=== PATIENT | female | born 1940 | race Caucasian/White ===

== ENCOUNTER 2017-12-23 10:20 | Inpatient (IN) ==
[2017-12-23] MEDS ORDERED: PANTOPRAZOLE 40 MG VIAL IV STA (10:49)
[2017-12-23] MEDS ORDERED: ONDANSETRON 4 MG/2 ML VIAL IV STA (10:49)
[2017-12-23] MEDS ORDERED: FUROSEMIDE 100 MG/10 ML VIAL IV STA (10:49)
[2017-12-23] MEDS ORDERED: methylPREDNISolone SOD SUC 125 MG/2 ML VIAL IV STA (10:49)
[2017-12-23] MEDS ORDERED: ALBUTEROL 2.5 MG/3 ML NEB RESP TX SCH (11:00)
[2017-12-23 11:01] LABS: Basophils % 0.5 % (0.0-0.8); Eosinophils # 0.1 10*3/uL (0.0-0.87); Eosinophils % 1.7 % (0.00-10.9); Hematocrit 31.7 VOL% (35.7-47.0); Hemoglobin 9.5 GM/DL (12.0-16.0); Immature Granulocytes % 0.8 %; Immature Granulocytes Absolute 0.06 #; Lymphocytes # 2.3 10*3/uL (1.4-4.0); Lymphocytes % 29.6 % (21.3-54.2); Mean Corpuscular Hemoglobin 24 PG (27-34); Mean Corpuscular Volume 80.1 FL (87-102); Mean Platelet Volume 10.8 FL (9.6-12.0); Monocytes # 0.8 10*3/uL (0.11-0.8); Monocytes % 9.8 % (1.7-12.7); Neutrophils # 4.4 10*3/uL (1.4-7.4); Neutrophils % 57.6 % (38.7-73.9); Platelet Count 290 T/CUMM (130-400); Red Blood Count 3.96 MC/CUMM (3.8-5.5); Red Cell Distribution Width 17.2 % (9.3-17.3); White Blood Count 7.7 T/CUMM (4-12)
[2017-12-23 11:12] LABS: Apearance,Urine CLEAR (Clear); Bilirubin,Urine Negative (Negative); Blood, Urine Negative (Negative); Glucose,Urine (UA) Negative (Negative); Ketones,Urine Negative (Negative); Mucus,Urine Occasional /LPF (Occasional); Nitrite,Urine Negative (Negative); Protein,Urine Negative; Urine Color Yellow (Yellow); Urine Specific Gravity 1.011 (1.001-1.035); Urine Urobilinogen < 2.0 EU/DL (0.2-1.0); WBC,Urine 1 /HPF (0-6)
[2017-12-23 11:19] LABS: INR 2.6
[2017-12-23 11:26] LABS: Alanine Aminotransferase 23 U/L (13-56); Albumin 3.1 G/DL (3.4-5.0); Alkaline Phosphatase 65 U/L (45-117); Aspartate Amino Transferase 32 U/L (0-37); Bilirubin,Total < 0.39 MG/DL (0.2-1.0); Blood Urea Nitrogen 12 MG/DL (7-18); Calcium 8.8 MG/DL (8.5-10.1); Glucose 114 MG/DL (74-106); Osmolality,Calculated 283.1 MOS/KG (273-304); Potassium 3.8 MMOL/L (3.5-5.1); Sodium 142 MMOL/L (136-145); Total Protein 7.2 G/DL (6.4-8.3); Troponin I Only < 0.015 NG/ML (0.00-0.045)
[2017-12-23 11:32] LABS: Eosinophils 2 % (0-10); Hypochromasia 1+; Lymphocytes 26 % (20-55); Microcytosis 1+; Ovalocytes Few; Segmented Neutrophils 65 % (50-85); Total Cells Counted 100
[2017-12-23 11:33] LABS: Atypical Lymphocytes Few; Giant Platelets Few; Platelet Estimate Normal
[2017-12-23] MEDS ORDERED: cefTRIAXone 1,000 MG in SODIUM CHLORIDE 0.9% 100 ML IV STA (11:43)
[2017-12-23] MEDS ORDERED: DEXTROSE 50% 25 GM/50 ML VIAL IV PRN (14:25)
[2017-12-23] MEDS ORDERED: ALBUTEROL/IPRATROPIUM 3 ML NEB RESP TX PRN (14:25)
[2017-12-23] MEDS ORDERED: GLUCAGON 1 MG VIAL IM PRN (14:25)
[2017-12-23] MEDS: cefTRIAXone 1,000 MG in SYRINGE 1 EACH IV SCH (15:27)
[2017-12-23] MEDS: FUROSEMIDE 20 MG/2 ML VIAL IV SCH (15:27)
[2017-12-23] MEDS: SODIUM CHLORIDE 0.9% 1,000 ML IV SCH (15:28)
[2017-12-23] MEDS: INSULIN REGULAR 100 UNIT/ML SUBCUT SCH ×2 (15:35→21:07)
[2017-12-23] MEDS: DICYCLOMINE 10 MG CAPSULE PO SCH ×2 (17:06→21:05)
[2017-12-23] MEDS: methylPREDNISolone SOD SUC 40 MG/1 ML VIAL IV SCH (17:06)
[2017-12-23] MEDS: LEVOFLOXACIN INJ 500 MG in PREMIX 1 EACH IV SCH (17:07)
[2017-12-23] MEDS ORDERED: LEVOTHYROXINE 100 MCG TABLET PO SCH (21:00)
[2017-12-23] MEDS ORDERED: SIMVASTATIN 40 MG TABLET PO SCH (21:00)
[2017-12-23] MEDS: POTASSIUM CHLORIDE 10 MEQ TABLET PO SCH (21:06)
[2017-12-23] MEDS: MAGNESIUM CHLORIDE 64 MG TABLET PO SCH (21:06)
[2017-12-23] MEDS: DOCUSATE SODIUM 100 MG CAPSULE PO SCH (21:07)
[2017-12-23] MEDS: ONDANSETRON 4 MG/2 ML VIAL IV PRN (21:13)
[2017-12-24] MEDS: ONDANSETRON 4 MG/2 ML VIAL IV PRN (04:44)
[2017-12-24] MEDS: methylPREDNISolone SOD SUC 40 MG/1 ML VIAL IV SCH ×2 (04:44→17:57)
[2017-12-24 06:52] LABS: Hematocrit 31.6 VOL% (35.7-47.0); Immature Granulocytes % 1.3 %; Lymphocytes # 1.1 10*3/uL (1.4-4.0); Lymphocytes % 13.9 % (21.3-54.2); Mean Corpuscular HGB Conc 31.6 GM/DL (32-36); Mean Corpuscular Hemoglobin 24 PG (27-34); Mean Corpuscular Volume 76.5 FL (87-102); Mean Platelet Volume 10.4 FL (9.6-12.0); Monocytes # 0.6 10*3/uL (0.11-0.8); Monocytes % 7.8 % (1.7-12.7); NRBC # 0.02 10*3/uL; Platelet Count 320 T/CUMM (130-400); Red Blood Count 4.13 MC/CUMM (3.8-5.5); Red Cell Distribution Width 17.2 % (9.3-17.3); White Blood Count 7.8 T/CUMM (4-12)
[2017-12-24 07:33] LABS: Albumin 3.3 G/DL (3.4-5.0); Bilirubin,Total 0.7 MG/DL (0.2-1.0); Calcium 8.8 MG/DL (8.5-10.1); Osmolality,Calculated 289.8 MOS/KG (273-304); Potassium 4.2 MMOL/L (3.5-5.1); Risk Ratio 3.2; Total Protein 7.1 G/DL (6.4-8.3)
[2017-12-24 07:38] LABS: T4 (Thyroxine) 11.2 UG/DL (4.7-13.3); Thyroid Stimulating Hormone 1.07 uIU/ml (0.358-3.74)
[2017-12-24] MEDS ORDERED: amLODIPine 5 MG TABLET PO SCH (09:00)
[2017-12-24] MEDS ORDERED: SIMVASTATIN 40 MG TABLET PO SCH ×3 (09:00→16:00)
[2017-12-24] MEDS ORDERED: MAGNESIUM CHLORIDE 64 MG TABLET PO SCH ×3 (09:02→21:00)
[2017-12-24] MEDS: FUROSEMIDE 20 MG/2 ML VIAL IV SCH (09:37)
[2017-12-24] MEDS: SODIUM CHLORIDE 0.9% 1,000 ML IV SCH ×2 (10:55→14:42)
[2017-12-24] MEDS: INSULIN REGULAR 100 UNIT/ML SUBCUT SCH (10:56)
[2017-12-24] MEDS: DICYCLOMINE 10 MG CAPSULE PO SCH ×5 (11:26→20:22)
[2017-12-24] MEDS: ATENOLOL 25 MG TABLET PO SCH ×2 (11:26→12:03)
[2017-12-24] MEDS: PANTOPRAZOLE 40 MG TABLET PO SCH (12:03)
[2017-12-24] MEDS: MAGNESIUM CHLORIDE 64 MG TABLET PO SCH ×2 (12:15→17:05)
[2017-12-24] MEDS: DOCUSATE SODIUM 100 MG CAPSULE PO SCH (12:15)
[2017-12-24] MEDS: POTASSIUM CHLORIDE 10 MEQ TABLET PO SCH ×2 (12:15→17:06)
[2017-12-24] MEDS: cefTRIAXone 1,000 MG in SYRINGE 1 EACH IV SCH (14:41)
[2017-12-24] MEDS ORDERED: LEVOTHYROXINE 100 MCG TABLET PO SCH (16:00)
[2017-12-24] MEDS: BENZONATATE 100 MG CAPSULE PO PRN (17:56)
[2017-12-24] MEDS: LEVOTHYROXINE 100 MCG TABLET PO SCH (17:57)
[2017-12-24] MEDS: amLODIPine 5 MG TABLET PO SCH (17:58)
[2017-12-24] MEDS: SIMVASTATIN 40 MG TABLET PO SCH (17:58)
[2017-12-24] MEDS: LEVOFLOXACIN INJ 500 MG in PREMIX 1 EACH IV SCH (17:58)
[2017-12-24] MEDS ORDERED: POTASSIUM CHLORIDE 10 MEQ TABLET PO SCH (18:00)
[2017-12-24 19:05] LABS: Apearance,Urine Slightly Hazy (Clear); Bilirubin,Urine Negative (Negative); Blood, Urine Large mg/dL (Negative); Glucose,Urine (UA) Negative (Negative); Ketones,Urine Negative (Negative); Mucus,Urine Moderate /LPF (Occasional); Nitrite,Urine Negative (Negative); Protein,Urine 100 MG/DL; RBC,Urine 417 /HPF (0-4); Urine Color Yellow (Yellow); Urine Specific Gravity 1.017 (1.001-1.035); Urine Urobilinogen < 2.0 EU/DL (0.2-1.0); WBC,Urine 11 /HPF (0-6)
[2017-12-24 19:29] LABS: INR 2.4
[2017-12-24 19:33] LABS: PT Patient Result 24.6 SECS
[2017-12-25] MEDS: BENZONATATE 100 MG CAPSULE PO PRN ×3 (03:34→19:56)
[2017-12-25] MEDS: methylPREDNISolone SOD SUC 40 MG/1 ML VIAL IV SCH ×2 (05:25→16:32)
[2017-12-25] MEDS: SODIUM CHLORIDE 0.9% 1,000 ML IV SCH ×2 (05:36→12:46)
[2017-12-25 06:42] LABS: Basophils % 0.2 % (0.0-0.8); Eosinophils % 0.2 % (0.00-10.9); Hematocrit 32.5 VOL% (35.7-47.0); Immature Granulocytes % 0.5 %; Immature Granulocytes Absolute 0.05 #; Lymphocytes # 2.7 10*3/uL (1.4-4.0); Lymphocytes % 26.5 % (21.3-54.2); Mean Corpuscular HGB Conc 30.8 GM/DL (32-36); Mean Corpuscular Hemoglobin 24 PG (27-34); Mean Corpuscular Volume 78.3 FL (87-102); Mean Platelet Volume 11.1 FL (9.6-12.0); Monocytes # 1.1 10*3/uL (0.11-0.8); Monocytes % 10.9 % (1.7-12.7); Neutrophils # 6.2 10*3/uL (1.4-7.4); Neutrophils % 61.7 % (38.7-73.9); Platelet Count 375 T/CUMM (130-400); Red Blood Count 4.15 MC/CUMM (3.8-5.5); Red Cell Distribution Width 17.2 % (9.3-17.3); White Blood Count 10.1 T/CUMM (4-12)
[2017-12-25] MEDS: FUROSEMIDE 20 MG/2 ML VIAL IV SCH (08:09)
[2017-12-25] MEDS: DICYCLOMINE 10 MG CAPSULE PO SCH ×6 (09:10→20:02)
[2017-12-25] MEDS: DOCUSATE SODIUM 100 MG CAPSULE PO SCH (09:10)
[2017-12-25] MEDS: POTASSIUM CHLORIDE 10 MEQ TABLET PO SCH ×3 (09:11→17:27)
[2017-12-25] MEDS: amLODIPine 5 MG TABLET PO SCH (09:11)
[2017-12-25] MEDS: SIMVASTATIN 40 MG TABLET PO SCH ×2 (09:11→17:26)
[2017-12-25] MEDS: ATENOLOL 25 MG TABLET PO SCH (09:12)
[2017-12-25] MEDS: PANTOPRAZOLE 40 MG TABLET PO SCH (09:13)
[2017-12-25] MEDS: MAGNESIUM CHLORIDE 64 MG TABLET PO SCH ×3 (09:13→17:27)
[2017-12-25] MEDS: LEVOTHYROXINE 100 MCG TABLET PO SCH ×2 (09:17→17:26)
[2017-12-25] MEDS: cefTRIAXone 1,000 MG in SYRINGE 1 EACH IV SCH ×2 (12:45→15:26)
[2017-12-25] MEDS: DEXTROMETHORPHAN ER 6 MG/ML 90 ML/BOTTLE PO PRN (13:50)
[2017-12-25] MEDS: LEVOFLOXACIN INJ 500 MG in PREMIX 1 EACH IV SCH (16:33)
[2017-12-25] MEDS ORDERED: amLODIPine 5 MG TABLET PO SCH (18:00)
[2017-12-26] MEDS: DEXTROMETHORPHAN ER 6 MG/ML 90 ML/BOTTLE PO PRN (02:19)
[2017-12-26] MEDS: BENZONATATE 100 MG CAPSULE PO PRN (02:19)
[2017-12-26] MEDS: SODIUM CHLORIDE 0.9% 1,000 ML IV SCH ×2 (04:24→23:25)
[2017-12-26] MEDS: methylPREDNISolone SOD SUC 40 MG/1 ML VIAL IV SCH (04:52)
[2017-12-26 06:53] LABS: Basophils % 0.1 % (0.0-0.8); Hematocrit 34.7 VOL% (35.7-47.0); Hemoglobin 10.5 GM/DL (12.0-16.0); Immature Granulocytes % 0.8 %; Lymphocytes # 1.9 10*3/uL (1.4-4.0); Lymphocytes % 15.4 % (21.3-54.2); Mean Corpuscular HGB Conc 30.3 GM/DL (32-36); Mean Corpuscular Hemoglobin 24 PG (27-34); Mean Corpuscular Volume 80.3 FL (87-102); Mean Platelet Volume 10.6 FL (9.6-12.0); Monocytes # 1.2 10*3/uL (0.11-0.8); Monocytes % 9.5 % (1.7-12.7); Neutrophils # 9.2 10*3/uL (1.4-7.4); Neutrophils % 74.2 % (38.7-73.9); Platelet Count 422 T/CUMM (130-400); Red Blood Count 4.32 MC/CUMM (3.8-5.5); Red Cell Distribution Width 16.9 % (9.3-17.3); White Blood Count 12.4 T/CUMM (4-12)
[2017-12-26 07:20] LABS: Calcium 8.7 MG/DL (8.5-10.1); Osmolality,Calculated 287.8 MOS/KG (273-304); Potassium 4.4 MMOL/L (3.5-5.1)
[2017-12-26] MEDS: MAGNESIUM CHLORIDE 64 MG TABLET PO SCH ×2 (08:00→17:26)
[2017-12-26] MEDS: FUROSEMIDE 20 MG/2 ML VIAL IV SCH (08:00)
[2017-12-26] MEDS: POTASSIUM CHLORIDE 10 MEQ TABLET PO SCH ×2 (08:01→17:25)
[2017-12-26] MEDS: DICYCLOMINE 10 MG CAPSULE PO SCH ×4 (08:01→21:17)
[2017-12-26] MEDS: PANTOPRAZOLE 40 MG TABLET PO SCH (08:01)
[2017-12-26] MEDS: DOCUSATE SODIUM 100 MG CAPSULE PO SCH (08:01)
[2017-12-26] MEDS: ATENOLOL 25 MG TABLET PO SCH (08:01)
[2017-12-26] MEDS ORDERED: guaiFENesin 200 MG/10 ML UDCUP PO PRN (08:50)
[2017-12-26] MEDS ORDERED: HYDROcodone/CHLORPHENIRAMINE ER 5 ML UDCUP PO PRN (12:50)
[2017-12-26] MEDS: cefTRIAXone 1,000 MG in SYRINGE 1 EACH IV SCH (13:50)
[2017-12-26] MEDS: LEVOFLOXACIN INJ 500 MG in PREMIX 1 EACH IV SCH (17:26)
[2017-12-26] MEDS: SIMVASTATIN 40 MG TABLET PO SCH (17:26)
[2017-12-26] MEDS: LEVOTHYROXINE 100 MCG TABLET PO SCH (17:26)
[2017-12-27 07:36] LABS: Basophils % 0.1 % (0.0-0.8); Eosinophils # 0.2 10*3/uL (0.0-0.87); Eosinophils % 1.4 % (0.00-10.9); Hematocrit 33.6 VOL% (35.7-47.0); Immature Granulocytes % 0.7 %; Immature Granulocytes Absolute 0.08 #; Lymphocytes # 3.4 10*3/uL (1.4-4.0); Lymphocytes % 31.5 % (21.3-54.2); Mean Corpuscular HGB Conc 29.8 GM/DL (32-36); Mean Corpuscular Hemoglobin 24 PG (27-34); Mean Corpuscular Volume 79.8 FL (87-102); Mean Platelet Volume 10.2 FL (9.6-12.0); Monocytes # 1.4 10*3/uL (0.11-0.8); Monocytes % 12.6 % (1.7-12.7); Neutrophils # 5.8 10*3/uL (1.4-7.4); Neutrophils % 53.7 % (38.7-73.9); Platelet Count 368 T/CUMM (130-400); Red Blood Count 4.21 MC/CUMM (3.8-5.5); Red Cell Distribution Width 16.7 % (9.3-17.3); White Blood Count 10.8 T/CUMM (4-12)
[2017-12-27 07:59] LABS: INR 1.6; PT Patient Result 16.9 SECS
[2017-12-27 08:08] LABS: Calcium 8.6 MG/DL (8.5-10.1); Osmolality,Calculated 286.8 MOS/KG (273-304); Potassium 3.8 MMOL/L (3.5-5.1)
[2017-12-27] MEDS: PANTOPRAZOLE 40 MG TABLET PO SCH (08:20)
[2017-12-27] MEDS: ATENOLOL 25 MG TABLET PO SCH (08:20)
[2017-12-27] MEDS: POTASSIUM CHLORIDE 10 MEQ TABLET PO SCH (08:20)
[2017-12-27] MEDS: DOCUSATE SODIUM 100 MG CAPSULE PO SCH (08:20)
[2017-12-27] MEDS: FUROSEMIDE 20 MG/2 ML VIAL IV SCH (08:20)
[2017-12-27] MEDS: DICYCLOMINE 10 MG CAPSULE PO SCH ×2 (08:20→14:09)
[2017-12-27] MEDS ORDERED: amLODIPine 10 MG TABLET PO SCH (09:00)
[2017-12-27 11:45] VITALS: BP 153/72
[2017-12-27] MEDS ORDERED: LIDOCAINE 2% 5 ML VIAL ONE (12:00)
[2017-12-27] MEDS ORDERED: PROPOFOL 200 MG/20 ML VIAL IV ONE (12:00)
[2017-12-27] MEDS: MAGNESIUM CHLORIDE 64 MG TABLET PO SCH (12:55)
[2017-12-27] MEDS: cefTRIAXone 1,000 MG in SYRINGE 1 EACH IV SCH (14:30)
== END 2017-12-27 16:05 | disposition home or self-care (01) | DRG 377 ==
LOC: EDUNIT# → EDBD → N.ED 10:20 → N.EDINP 13:51 → N.5E 14:04
PROVIDERS: ADMIT Family Medicine; ATTEND Family Medicine

== ENCOUNTER 2020-10-29 14:38 | Observation (INO) ==
[2020-10-29 16:00] LABS: Basophils % 0.3 % (0.0-0.8); Eosinophils % 0.3 % (0.00-10.9); Hematocrit 31.3 VOL% (35.7-47.0); Hemoglobin 9.9 GM/DL (12.0-16.0); Immature Granulocytes % 0.2 %; Immature Granulocytes Absolute 0.01 #; Lymphocytes # 2.4 10*3/uL (1.4-4.0); Lymphocytes % 38.1 % (21.3-54.2); Mean Corpuscular HGB Conc 31.6 GM/DL (32-36); Mean Platelet Volume 13.7 FL (9.6-12.0); Monocytes % 15.8 % (1.7-12.7); Neutrophils % 45.3 % (38.7-73.9); Platelet Count 241 T/CUMM (130-400); Red Blood Count 2.77 MC/CUMM (3.8-5.5); Red Cell Distribution Width 17.2 % (9.3-17.3); White Blood Count 6.3 T/CUMM (4-12)
[2020-10-29 16:12] LABS: Alanine Aminotransferase 18 U/L (13-56); Albumin 3.4 G/DL (3.4-5.0); Alkaline Phosphatase 66 U/L (45-117); Aspartate Amino Transferase 17 U/L (0-37); Bilirubin,Total < 0.39 MG/DL (0.2-1.0); Blood Urea Nitrogen 13 MG/DL (7-18); Calcium 8.9 MG/DL (8.5-10.1); Carbon Dioxide 24 MMOL/L (21-32); Estimated Glom Filtration Rate 64 ML/MIN; Glucose 203 MG/DL (74-106); Osmolality,Calculated 284.4 MOS/KG (273-304); Potassium 3.2 MMOL/L (3.5-5.1); Sodium 140 MMOL/L (136-145); Total Protein 7.4 G/DL (5.0-7.5)
[2020-10-29 16:35] LABS: Anisocytosis 1+; Atypical Lymphocytes Few; Lymphocytes 44 % (20-55); Macrocytosis 1+; Platelet Estimate Normal; Segmented Neutrophils 45 % (50-85); Total Cells Counted 100
[2020-10-29] MEDS ORDERED: ONDANSETRON 4 MG/2 ML VIAL IV PRN (17:26)
[2020-10-29] MEDS ORDERED: SIMETHICONE CHEW 125 MG TABLET PO PRN (17:26)
[2020-10-29] MEDS ORDERED: DEXTROSE 50% 25 GM/50 ML VIAL IV PRN (17:26)
[2020-10-29] MEDS ORDERED: GLUCAGON 1 MG VIAL IM PRN (17:26)
[2020-10-29] MEDS ORDERED: NITROGLYCERIN SL 0.4 MG TABLET SL PRN (17:31)
[2020-10-29 18:19] LABS: INR 2.4; PT Patient Result 25.1 SECS (9.8-11.9); Partial Thromboplastin Time 33.3 SECS (23.9-33.8)
[2020-10-29] MEDS ORDERED: ENOXAPARIN 40 MG/0.4 ML SYRINGE SUBCUT SCH (21:00)
[2020-10-29] MEDS ORDERED: WARFARIN 4 MG TABLET PO SCH (22:00)
[2020-10-29] MEDS: MAGNESIUM CHLORIDE 64 MG TABLET PO SCH (22:32)
[2020-10-29] MEDS: POTASSIUM CHLORIDE 20 MEQ TABLET PO SCH (22:32)
[2020-10-30] MEDS: INSULIN LISPRO 100 UNIT/ML SUBCUT SCH ×2 (03:01→12:05)
[2020-10-30 06:04] LABS: Basophils % 0.7 % (0.0-0.8); Eosinophils % 0.5 % (0.00-10.9); Hematocrit 28.7 VOL% (35.7-47.0); Hemoglobin 9.1 GM/DL (12.0-16.0); Lymphocytes # 1.4 10*3/uL (1.4-4.0); Lymphocytes % 31.9 % (21.3-54.2); Mean Corpuscular HGB Conc 31.7 GM/DL (32-36); Mean Platelet Volume 13.6 FL (9.6-12.0); Monocytes % 16.7 % (1.7-12.7); Neutrophils % 50.2 % (38.7-73.9); Red Blood Count 2.61 MC/CUMM (3.8-5.5); Red Cell Distribution Width 17.2 % (9.3-17.3)
[2020-10-30 06:13] LABS: Platelet Count 163 T/CUMM (130-400); White Blood Count 4.4 T/CUMM (4-12)
[2020-10-30 06:17] LABS: INR 2.2; PT Patient Result 22.5 SECS (9.8-11.9); Partial Thromboplastin Time 33.9 SECS (23.9-33.8)
[2020-10-30 06:29] LABS: Eosinophils 2 % (0-10); Hypochromasia 1+; Lymphocytes 33 % (20-55); Microcytosis 1+; Platelet Estimate Adequate; Segmented Neutrophils 59 % (50-85); Total Cells Counted 100
[2020-10-30 07:10] LABS: Calcium 8.7 MG/DL (8.5-10.1); Osmolality,Calculated 283.8 MOS/KG (273-304); Potassium 3.8 MMOL/L (3.5-5.1); Thyroid Stimulating Hormone 0.727 uIU/ml (0.358-3.74)
[2020-10-30 08:20] LABS: Vitamin B12 382 PG/ML (211-911)
[2020-10-30] MEDS ORDERED: FUROSEMIDE 40 MG TABLET PO SCH (09:00)
[2020-10-30] MEDS ORDERED: SIMVASTATIN 80 MG TABLET PO SCH (09:00)
[2020-10-30] MEDS ORDERED: PANTOPRAZOLE 40 MG TABLET PO SCH (09:00)
[2020-10-30] MEDS ORDERED: atenoloL 25 MG TABLET PO SCH (09:00)
[2020-10-30] MEDS: MAGNESIUM CHLORIDE 64 MG TABLET PO SCH (12:03)
[2020-10-30] MEDS: POTASSIUM CHLORIDE 20 MEQ TABLET PO SCH (12:03)
[2020-10-30 12:15] VITALS: BP 168/72
[2020-10-31 19:40] LABS: Folate > 24.0 NG/ML (5.38-24.0)
== END 2020-10-30 16:02 | disposition home or self-care (01) ==
LOC: N.EDINP 14:38 → N.ED 14:38 → N.EDINP 21:21 → N.TELES 21:53
PROVIDERS: ADMIT Internal Medicine; ATTEND Internal Medicine

== ENCOUNTER 2021-07-31 18:22 | Inpatient (IN) ==
[2021-07-31 20:44] LABS: Basophils % 0.7 % (0.0-0.8); Eosinophils % 0.2 % (0.00-10.9); Immature Granulocytes % 5.3 %; Immature Granulocytes Absolute 0.23 #; Lymphocytes # 0.9 10*3/uL (1.4-4.0); Lymphocytes % 19.9 % (21.3-54.2); Mean Corpuscular Volume 120.5 FL (87-102); Mean Platelet Volume 13.9 FL (9.6-12.0); Monocytes % 22.9 % (1.7-12.7); Platelet Count 220 T/CUMM (130-400); Red Blood Count 1.66 MC/CUMM (3.8-5.5); Red Cell Distribution Width 22.5 % (9.3-17.3); White Blood Count 4.3 T/CUMM (4-12)
[2021-07-31 21:07] LABS: Anisocytosis 2+; Band Neutrophils 4 % (0-10); Hypochromasia 1+; Lymphocytes 20 % (20-55); Macrocytosis 2+; Microcytosis Slight; Segmented Neutrophils 64 % (50-85); Total Cells Counted 100
[2021-07-31 21:08] LABS: Atypical Lymphocytes Few; Elliptocytes Few; Platelet Estimate Normal; Poikilocytosis Few; Polychromasia 1+; Tear Drop Cells Slight
[2021-07-31] MEDS ORDERED: SODIUM CHLORIDE 0.9% 1,000 ML IV PRN (21:24)
[2021-07-31] MEDS ORDERED: guaiFENesin/DM ER 600-30 MG TABLET PO PRN (21:25)
[2021-07-31] MEDS ORDERED: diphenhydrAMINE CAP 25 MG CAPSULE PO PRN (21:25)
[2021-07-31] MEDS ORDERED: ONDANSETRON 4 MG/2 ML VIAL IV PRN (21:25)
[2021-07-31] MEDS ORDERED: ZALEPLON 5 MG CAPSULE PO PRN (21:25)
[2021-07-31] MEDS ORDERED: hydrALAZINE 20 MG/1 ML VIAL IV PRN (21:25)
[2021-07-31] MEDS ORDERED: GLUCAGON 1 MG VIAL IM PRN (21:25)
[2021-07-31] MEDS ORDERED: BISACODYL 5 MG TABLET PO PRN (21:25)
[2021-07-31] MEDS ORDERED: DEXTROSE 50% 25 GM/50 ML SYRINGE IV PRN (21:25)
[2021-07-31] MEDS ORDERED: NICOTINE 21 MG/24 HR PATCH TRANSDERM PRN (21:25)
[2021-07-31 21:45] LABS: Calcium 8.6 MG/DL (8.5-10.1); Potassium 4.5 MMOL/L (3.5-5.1)
[2021-08-01 07:19] LABS: Basophils % 0.8 % (0.0-0.8); Eosinophils % 0.3 % (0.00-10.9); Hematocrit 22.3 VOL% (35.7-47.0); Hemoglobin 6.6 GM/DL (12.0-16.0); Immature Granulocytes % 5.4 %; Lymphocytes # 0.8 10*3/uL (1.4-4.0); Lymphocytes % 22.8 % (21.3-54.2); Mean Corpuscular HGB Conc 29.6 GM/DL (32-36); Mean Corpuscular Volume 118.6 FL (87-102); Mean Platelet Volume 13.8 FL (9.6-12.0); Monocytes % 19.2 % (1.7-12.7); Neutrophils % 51.5 % (38.7-73.9); Platelet Count 230 T/CUMM (130-400); Red Blood Count 1.88 MC/CUMM (3.8-5.5); Red Cell Distribution Width 24.7 % (9.3-17.3); White Blood Count 3.7 T/CUMM (4-12)
[2021-08-01 07:33] LABS: Calcium 8.7 MG/DL (8.5-10.1); Osmolality,Calculated 280.1 MOS/KG (273-304); Potassium 3.8 MMOL/L (3.5-5.1)
[2021-08-01] MEDS: LEVOTHYROXINE 125 MCG TABLET PO SCH (07:33)
[2021-08-01 07:55] LABS: Giant Platelets Few; Lymphocytes 21 % (20-55); Macrocytosis 1+; Ovalocytes Slight; Segmented Neutrophils 71 % (50-85); Total Cells Counted 100
[2021-08-01 07:56] LABS: Platelet Estimate Normal; Tear Drop Cells Slight
[2021-08-01] MEDS: FUROSEMIDE 40 MG TABLET PO SCH (09:04)
[2021-08-01 10:59] LABS: Hematocrit 20.4 VOL% (35.7-47.0)
[2021-08-01 11:08] LABS: Hemoglobin 6.1 GM/DL (12.0-16.0)
[2021-08-01] MEDS: SIMVASTATIN 80 MG TABLET PO SCH (13:45)
[2021-08-01] MEDS: PANTOPRAZOLE 40 MG VIAL IV SCH ×2 (14:32→22:15)
[2021-08-01 18:15] LABS: Hematocrit 26.2 VOL% (35.7-47.0)
[2021-08-02] MEDS: LEVOTHYROXINE 125 MCG TABLET PO SCH (05:49)
[2021-08-02 06:17] LABS: Basophils % 0.8 % (0.0-0.8); Eosinophils % 0.3 % (0.00-10.9); Hematocrit 25.3 VOL% (35.7-47.0); Hemoglobin 7.8 GM/DL (12.0-16.0); Immature Granulocytes % 10.8 %; Lymphocytes # 0.7 10*3/uL (1.4-4.0); Lymphocytes % 19.8 % (21.3-54.2); Mean Corpuscular HGB Conc 30.8 GM/DL (32-36); Mean Corpuscular Volume 112.9 FL (87-102); Mean Platelet Volume 13.8 FL (9.6-12.0); Monocytes % 24.7 % (1.7-12.7); Neutrophils % 43.6 % (38.7-73.9); Platelet Count 209 T/CUMM (130-400); Red Blood Count 2.24 MC/CUMM (3.8-5.5); Red Cell Distribution Width 23.9 % (9.3-17.3); White Blood Count 3.7 T/CUMM (4-12)
[2021-08-02 06:31] LABS: Calcium 8.7 MG/DL (8.5-10.1); Osmolality,Calculated 275.5 MOS/KG (273-304)
[2021-08-02 06:53] LABS: Eosinophils 4 % (0-10); Hypochromasia 1+; Lymphocytes 20 % (20-55); Microcytosis 1+; Platelet Estimate Adequate; Segmented Neutrophils 56 % (50-85); Total Cells Counted 100
[2021-08-02] MEDS: FUROSEMIDE 40 MG TABLET PO SCH (09:16)
[2021-08-02] MEDS: SIMVASTATIN 80 MG TABLET PO SCH (10:17)
[2021-08-02] MEDS: PANTOPRAZOLE 40 MG VIAL IV SCH ×2 (10:37→22:28)
[2021-08-02] MEDS ORDERED: MAGNESIUM CHLORIDE 64 MG TABLET PO SCH (11:00)
[2021-08-02] MEDS ORDERED: atenoloL 25 MG TABLET PO SCH (11:00)
[2021-08-02] MEDS: ACETAMINOPHEN 325 MG TABLET PO PRN (13:06)
[2021-08-02] MEDS: DICYCLOMINE 10 MG CAPSULE PO SCH ×2 (14:59→17:51)
[2021-08-02] MEDS: SIMVASTATIN 80 MG PO SCH (22:28)
[2021-08-02] MEDS: MAG 64 PO SCH (22:28)
[2021-08-02] MEDS: DICYCLOMINE 10 MG PO SCH (22:28)
[2021-08-03] MEDS: LEVOTHYROXINE 125 MCG PO SCH (05:37)
[2021-08-03 07:04] LABS: Basophils % 0.5 % (0.0-0.8); Eosinophils % 0.3 % (0.00-10.9); Hemoglobin 7.5 GM/DL (12.0-16.0); Immature Granulocytes % 6.5 %; Immature Granulocytes Absolute 0.26 #; Lymphocytes # 0.6 10*3/uL (1.4-4.0); Lymphocytes % 15.3 % (21.3-54.2); Mean Corpuscular HGB Conc 31.3 GM/DL (32-36); Mean Corpuscular Volume 112.1 FL (87-102); Mean Platelet Volume 13.9 FL (9.6-12.0); Monocytes % 23.1 % (1.7-12.7); Neutrophils % 54.3 % (38.7-73.9); Platelet Count 219 T/CUMM (130-400); Red Blood Count 2.14 MC/CUMM (3.8-5.5); Red Cell Distribution Width 23.9 % (9.3-17.3)
[2021-08-03 07:23] LABS: Calcium 8.4 MG/DL (8.5-10.1); Osmolality,Calculated 284.8 MOS/KG (273-304); Potassium 4.5 MMOL/L (3.5-5.1)
[2021-08-03 07:26] LABS: Eosinophils 1 % (0-10); Hypochromasia 2+; Lymphocytes 17 % (20-55); Microcytosis 1+; Platelet Estimate Adequate; Segmented Neutrophils 66 % (50-85); Total Cells Counted 100
[2021-08-03] MEDS: PANTOPRAZOLE 40 MG VIAL IV SCH ×2 (08:53→21:44)
[2021-08-03] MEDS: DICYCLOMINE 10 MG PO SCH ×4 (08:54→21:44)
[2021-08-03] MEDS: ATENOLOL 25MG PO SCH (08:54)
[2021-08-03] MEDS: MAG 64 PO SCH ×2 (08:55→21:44)
[2021-08-03] MEDS: FUROSEMIDE 40 MG PO SCH (08:55)
[2021-08-03] MEDS: ACETAMINOPHEN 325 MG TABLET PO PRN (13:51)
[2021-08-03] MEDS: SIMVASTATIN 80 MG PO SCH (21:44)
[2021-08-04] MEDS: LEVOTHYROXINE 125 MCG PO SCH (05:50)
[2021-08-04 06:13] LABS: Eosinophils % 0.3 % (0.00-10.9); Hematocrit 24.5 VOL% (35.7-47.0); Hemoglobin 7.6 GM/DL (12.0-16.0); Immature Granulocytes % 8.6 %; Immature Granulocytes Absolute 0.25 #; Lymphocytes # 0.7 10*3/uL (1.4-4.0); Lymphocytes % 22.4 % (21.3-54.2); Mean Corpuscular Volume 112.9 FL (87-102); Mean Platelet Volume 13.6 FL (9.6-12.0); Monocytes % 22.4 % (1.7-12.7); Neutrophils % 45.3 % (38.7-73.9); Platelet Count 230 T/CUMM (130-400); Red Blood Count 2.17 MC/CUMM (3.8-5.5); Red Cell Distribution Width 23.3 % (9.3-17.3); White Blood Count 2.9 T/CUMM (4-12)
[2021-08-04 06:38] LABS: Calcium 8.4 MG/DL (8.5-10.1); Osmolality,Calculated 284.8 MOS/KG (273-304); Potassium 3.6 MMOL/L (3.5-5.1)
[2021-08-04 06:42] LABS: Eosinophils 1 % (0-10); Hypochromasia 1+; Lymphocytes 22 % (20-55); Microcytosis 1+; Platelet Estimate Adequate; Segmented Neutrophils 51 % (50-85); Total Cells Counted 100
[2021-08-04 06:43] LABS: Ovalocytes Slight
[2021-08-04] MEDS: PANTOPRAZOLE 40 MG VIAL IV SCH ×2 (08:30→21:40)
[2021-08-04] MEDS: LACTATED RINGERS 1,000 ML IV SCH (10:20)
[2021-08-04] MEDS ORDERED: LIDOCAINE 2% 5 ML VIAL ONE (12:18)
[2021-08-04] MEDS ORDERED: propofoL 200 MG/20 ML VIAL IV ONE (12:18)
[2021-08-04] MEDS: DICYCLOMINE 10 MG PO SCH ×4 (13:13→21:40)
[2021-08-04] MEDS: ATENOLOL 25MG PO SCH (13:13)
[2021-08-04] MEDS: FUROSEMIDE 40 MG PO SCH (13:13)
[2021-08-04] MEDS: MAG 64 PO SCH ×2 (13:14→21:41)
[2021-08-04] MEDS ORDERED: SODIUM CHLORIDE 0.9% 1,000 ML IV PRN (13:49)
[2021-08-04] MEDS ORDERED: IRON SUCROSE 200 MG in SODIUM CHLORIDE 0.9% 100 ML IV ONE (15:17)
[2021-08-04] MEDS: SIMVASTATIN 80 MG PO SCH (21:40)
[2021-08-05 06:03] LABS: Basophils % 0.8 % (0.0-0.8); Eosinophils % 0.4 % (0.00-10.9); Hematocrit 27.5 VOL% (35.7-47.0); Hemoglobin 8.5 GM/DL (12.0-16.0); Immature Granulocytes % 2.8 %; Immature Granulocytes Absolute 0.07 #; Lymphocytes # 0.6 10*3/uL (1.4-4.0); Lymphocytes % 23.6 % (21.3-54.2); Mean Corpuscular HGB Conc 30.9 GM/DL (32-36); Mean Corpuscular Volume 108.3 FL (87-102); Monocytes % 26.8 % (1.7-12.7); Neutrophils % 45.6 % (38.7-73.9); Platelet Count 238 T/CUMM (130-400); Red Blood Count 2.54 MC/CUMM (3.8-5.5); Red Cell Distribution Width 24.1 % (9.3-17.3); White Blood Count 2.5 T/CUMM (4-12)
[2021-08-05 06:28] LABS: Band Neutrophils 1 % (0-10); Hypochromasia 1+; Lymphocytes 28 % (20-55); Microcytosis 1+; Ovalocytes Slight; Platelet Estimate Adequate; Segmented Neutrophils 54 % (50-85); Total Cells Counted 100
[2021-08-05] MEDS: LEVOTHYROXINE 125 MCG PO SCH (06:38)
[2021-08-05] MEDS: MAG 64 PO SCH (08:14)
[2021-08-05] MEDS: DICYCLOMINE 10 MG PO SCH (08:14)
[2021-08-05] MEDS: ATENOLOL 25MG PO SCH (08:15)
[2021-08-05] MEDS: PANTOPRAZOLE 40 MG VIAL IV SCH (08:15)
[2021-08-05] MEDS: FUROSEMIDE 40 MG PO SCH (08:17)
[2021-08-05] MEDS: LACTATED RINGERS 1,000 ML IV SCH (09:17)
[2021-08-05 12:32] VITALS: BP 106/61
== END 2021-08-05 13:23 | disposition home or self-care (01) | DRG 378 ==
LOC: N.ED 18:22 → N.EDINP 21:25 → SUATTDRO 21:25 → N.EDINP 08-01 → N.TELES 08-01 01:23
PROVIDERS: ADMIT Internal Medicine; ATTEND Internal Medicine

== ENCOUNTER 2021-10-24 21:24 | Inpatient (IN) ==
[2021-10-24 23:20] LABS: Basophils % 0.5 % (0.0-0.8); Eosinophils % 0.7 % (0.00-10.9); Hematocrit 21.5 VOL% (35.7-47.0); Hemoglobin 6.6 GM/DL (12.0-16.0); Immature Granulocytes % 2.5 %; Immature Granulocytes Absolute 0.11 #; Lymphocytes # 1.2 10*3/uL (1.4-4.0); Lymphocytes % 26.7 % (21.3-54.2); Mean Corpuscular HGB Conc 30.7 GM/DL (32-36); Mean Corpuscular Volume 107.5 FL (87-102); Mean Platelet Volume 13.3 FL (9.6-12.0); Monocytes % 21.8 % (1.7-12.7); Neutrophils % 47.8 % (38.7-73.9); Platelet Count 335 T/CUMM (130-400); White Blood Count 4.4 T/CUMM (4-12)
[2021-10-24 23:27] LABS: INR 1.1; PT Patient Result 11.7 SECS (10.5-12.0)
[2021-10-24 23:50] LABS: Alanine Aminotransferase 21 U/L (13-56); Albumin 3.2 G/DL (3.4-5.0); Alkaline Phosphatase 48 U/L (45-117); Aspartate Amino Transferase 15 U/L (0-37); Bilirubin,Total < 0.39 MG/DL (0.20-1.00); Blood Urea Nitrogen 15 MG/DL (7-18); Calcium 8.7 MG/DL (8.5-10.1); Carbon Dioxide 27 MMOL/L (21-32); Estimated Glom Filtration Rate 54 ML/MIN; Glucose 102 MG/DL (74-106); Osmolality,Calculated 283.1 MOS/KG (273-304); Potassium 3.6 MMOL/L (3.5-5.1); Sodium 142 MMOL/L (136-145); Total Protein 7.4 G/DL (6.4-8.2)
[2021-10-24] MEDS ORDERED: NICOTINE 21 MG/24 HR PATCH TRANSDERM PRN (23:50)
[2021-10-24] MEDS ORDERED: DEXTROSE 10% 250 ML BAG IV PRN (23:50)
[2021-10-24] MEDS ORDERED: ONDANSETRON 4 MG/2 ML VIAL IV PRN (23:50)
[2021-10-24] MEDS ORDERED: BISACODYL 5 MG TABLET PO PRN (23:50)
[2021-10-24] MEDS ORDERED: GLUCAGON 1 MG VIAL IM PRN (23:50)
[2021-10-24] MEDS ORDERED: ZALEPLON 5 MG CAPSULE PO PRN (23:50)
[2021-10-24] MEDS ORDERED: guaiFENesin/DM ER 600-30 MG TABLET PO PRN (23:50)
[2021-10-24] MEDS ORDERED: hydrALAZINE 20 MG/1 ML VIAL IV PRN (23:50)
[2021-10-24 23:52] LABS: Eosinophils 2 % (0-10); Hypochromia 2+; Lymphocytes 23 % (20-55); Microcytosis Slight; Platelet Estimate Normal; Segmented Neutrophils 52 % (50-85); Total Cells Counted 100
[2021-10-24] MEDS ORDERED: SODIUM CHLORIDE 0.9% 1,000 ML IV PRN (23:59)
[2021-10-25] MEDS: PANTOPRAZOLE 40 MG TABLET PO SCH (09:30)
[2021-10-25 10:16] LABS: Hematocrit 26.4 VOL% (35.7-47.0); Hemoglobin 8.4 GM/DL (12.0-16.0); Immature Granulocytes % 1.3 %; Immature Granulocytes Absolute 0.05 #; Lymphocytes # 0.9 10*3/uL (1.4-4.0); Lymphocytes % 23.5 % (21.3-54.2); Mean Corpuscular HGB Conc 31.8 GM/DL (32-36); Mean Corpuscular Volume 101.5 FL (87-102); Mean Platelet Volume 13.6 FL (9.6-12.0); Monocytes % 19.5 % (1.7-12.7); Neutrophils % 54.7 % (38.7-73.9); Platelet Count 295 T/CUMM (130-400); Red Cell Distribution Width 24.6 % (9.3-17.3)
[2021-10-25 10:46] LABS: Calcium 8.6 MG/DL (8.5-10.1); Potassium 3.6 MMOL/L (3.5-5.1)
[2021-10-25 10:48] LABS: Folate > 24.00 NG/ML (5.38-24.0); Vitamin B12 320 PG/ML (211-911)
[2021-10-25 10:54] LABS: Eosinophils 1 % (0-10); Hypochromia 1+; Lymphocytes 19 % (20-55); Microcytosis 1+; Platelet Estimate Adequate; Segmented Neutrophils 68 % (50-85); Total Cells Counted 100
[2021-10-25 11:19] LABS: Sedimentation Rate-Westergren 105 MM/HR (0-30)
[2021-10-25] MEDS ORDERED: INFLUENZA VIRUS VACCINE 0.5 ML SYRINGE IM ONE (17:48)
[2021-10-25] MEDS: ACETAMINOPHEN 325 MG TABLET PO PRN (18:10)
[2021-10-25] MEDS: SODIUM CHLORIDE 0.9% 1,000 ML IV SCH ×2 (23:48)
[2021-10-26] MEDS: SODIUM CHLORIDE 0.9% 1,000 ML IV SCH ×3 (04:26→23:46)
[2021-10-26 08:10] LABS: Basophils % 0.8 % (0.0-0.8); Eosinophils % 0.3 % (0.00-10.9); Hematocrit 30.1 VOL% (35.7-47.0); Hemoglobin 9.5 GM/DL (12.0-16.0); Immature Granulocytes Absolute 0.11 #; Lymphocytes # 0.9 10*3/uL (1.4-4.0); Lymphocytes % 23.2 % (21.3-54.2); Mean Corpuscular HGB Conc 31.6 GM/DL (32-36); Mean Platelet Volume 13.2 FL (9.6-12.0); Monocytes % 25.1 % (1.7-12.7); Neutrophils % 47.6 % (38.7-73.9); Platelet Count 324 T/CUMM (130-400); Red Blood Count 2.95 MC/CUMM (3.8-5.5); White Blood Count 3.7 T/CUMM (4-12)
[2021-10-26 08:28] LABS: Band Neutrophils 1 % (0-10); Eosinophils 5 % (0-10); Lymphocytes 17 % (20-55); Segmented Neutrophils 56 % (50-85); Total Cells Counted 100
[2021-10-26 08:29] LABS: Hypochromia 1+; Microcytosis 1+; Platelet Estimate Adequate
[2021-10-26] MEDS: PANTOPRAZOLE 40 MG TABLET PO SCH (09:45)
[2021-10-26] MEDS: ACETAMINOPHEN 325 MG TABLET PO PRN ×2 (11:41→21:17)
[2021-10-26] MEDS ORDERED: KETOROLAC 15 MG/1 ML VIAL IM ONE (12:10)
[2021-10-27] MEDS: PANTOPRAZOLE 40 MG TABLET PO SCH ×4 (07:00→21:28)
[2021-10-27] MEDS: DICYCLOMINE 10 MG CAPSULE PO SCH ×3 (07:00→21:27)
[2021-10-27] MEDS: atenoloL 25 MG TABLET PO SCH (07:00)
[2021-10-27] MEDS: [UNRECOGNIZED DRUG - OTHER] PO SCH ×2 (07:00→11:36)
[2021-10-27] MEDS: IRON PO SCH ×2 (07:00→11:36)
[2021-10-27 07:06] LABS: Calcium 8.8 MG/DL (8.5-10.1); Osmolality,Calculated 280.3 MOS/KG (273-304)
[2021-10-27 08:33] LABS: Basophils % 0.8 % (0.0-0.8); Eosinophils % 0.5 % (0.00-10.9); Hematocrit 28.9 VOL% (35.7-47.0); Hemoglobin 9.2 GM/DL (12.0-16.0); Immature Granulocytes % 2.9 %; Immature Granulocytes Absolute 0.11 #; Lymphocytes # 0.8 10*3/uL (1.4-4.0); Lymphocytes % 21.3 % (21.3-54.2); Mean Corpuscular HGB Conc 31.8 GM/DL (32-36); Mean Platelet Volume 13.5 FL (9.6-12.0); Monocytes % 20.2 % (1.7-12.7); Neutrophils % 54.3 % (38.7-73.9); Platelet Count 204 T/CUMM (130-400); Red Blood Count 2.86 MC/CUMM (3.8-5.5); Red Cell Distribution Width 24.5 % (9.3-17.3); White Blood Count 3.8 T/CUMM (4-12)
[2021-10-27 08:49] LABS: Hypochromia 1+; Lymphocytes 31 % (20-55); Microcytosis 1+; Segmented Neutrophils 57 % (50-85); Total Cells Counted 100
[2021-10-27 08:50] LABS: Ovalocytes Slight; Platelet Estimate Normal
[2021-10-27] MEDS ORDERED: MULTIVITAMIN (CENTRUM) TABLET PO SCH (10:00)
[2021-10-27] MEDS: ACETAMINOPHEN 325 MG TABLET PO PRN (10:09)
[2021-10-27] MEDS ORDERED: NITROGLYCERIN SL 0.4 MG TABLET SL PRN (10:10)
[2021-10-27 10:11] LABS: % Iron Saturation 79.9 % (18-50)
[2021-10-27] MEDS ORDERED: MAGNESIUM CHLORIDE 64 MG TABLET PO SCH ×2 (10:30→12:00)
[2021-10-27] MEDS ORDERED: FUROSEMIDE 40 MG TABLET PO SCH (10:30)
[2021-10-27] MEDS ORDERED: POTASSIUM CHLORIDE 10 MEQ TABLET PO SCH (11:30)
[2021-10-27] MEDS: CYANOCOBALAMIN 500 MCG TABLET PO SCH (11:47)
[2021-10-27] MEDS: MAGNESIUM CHLORIDE 64 MG TABLET PO SCH (17:21)
[2021-10-27] MEDS: FERROUS SULFATE 325 MG TABLET PO SCH (17:21)
[2021-10-27] MEDS: POTASSIUM CHLORIDE 10 MEQ TABLET PO SCH (17:21)
[2021-10-27] MEDS ORDERED: SIMVASTATIN 80 MG TABLET PO SCH (21:00)
[2021-10-28 05:58] LABS: Basophils # 0.1 10*3/uL (0.0-0.2); Basophils % 1.1 % (0.0-0.8); Eosinophils % 0.4 % (0.00-10.9); Hematocrit 26.6 VOL% (35.7-47.0); Hemoglobin 8.4 GM/DL (12.0-16.0); Immature Granulocytes % 1.7 %; Immature Granulocytes Absolute 0.08 #; Lymphocytes # 0.9 10*3/uL (1.4-4.0); Lymphocytes % 18.6 % (21.3-54.2); Mean Corpuscular HGB Conc 31.6 GM/DL (32-36); Mean Corpuscular Volume 101.9 FL (87-102); Mean Platelet Volume 13.5 FL (9.6-12.0); Monocytes % 25.6 % (1.7-12.7); Neutrophils % 52.6 % (38.7-73.9); Platelet Count 232 T/CUMM (130-400); Red Blood Count 2.61 MC/CUMM (3.8-5.5); Red Cell Distribution Width 24.6 % (9.3-17.3); White Blood Count 4.7 T/CUMM (4-12)
[2021-10-28 06:17] LABS: Calcium 8.5 MG/DL (8.5-10.1); Osmolality,Calculated 281.1 MOS/KG (273-304)
[2021-10-28 06:23] LABS: Hypochromia 1+; Lymphocytes 20 % (20-55); Microcytosis 1+; Platelet Estimate Adequate; Segmented Neutrophils 62 % (50-85); Total Cells Counted 100
[2021-10-28] MEDS ORDERED: LEVOTHYROXINE 125 MCG TABLET PO SCH (06:30)
[2021-10-28] MEDS ORDERED: LACTATED RINGERS 1,000 ML IV SCH (08:00)
[2021-10-28] MEDS ORDERED: FUROSEMIDE 40 MG TABLET PO SCH (09:00)
[2021-10-28] MEDS: PANTOPRAZOLE 40 MG TABLET PO SCH (09:05)
[2021-10-28] MEDS: POTASSIUM CHLORIDE 10 MEQ TABLET PO SCH (09:05)
[2021-10-28] MEDS: FERROUS SULFATE 325 MG TABLET PO SCH (09:05)
[2021-10-28] MEDS: DICYCLOMINE 10 MG CAPSULE PO SCH (09:05)
[2021-10-28] MEDS: CYANOCOBALAMIN 500 MCG TABLET PO SCH (09:06)
[2021-10-28] MEDS: MAGNESIUM CHLORIDE 64 MG TABLET PO SCH (09:06)
[2021-10-28] MEDS: IRON PO SCH (09:06)
[2021-10-28] MEDS: [UNRECOGNIZED DRUG - OTHER] PO SCH (09:06)
[2021-10-28] MEDS: atenoloL 25 MG TABLET PO SCH (09:06)
[2021-10-28] MEDS ORDERED: INFLUENZA VIRUS VACCINE 0.5 ML SYRINGE IM ONE (11:18)
[2021-10-28] MEDS ORDERED: LIDOCAINE 2% 5 ML VIAL ONE (12:05)
[2021-10-28] MEDS ORDERED: propofoL 200 MG/20 ML VIAL IV ONE (12:05)
[2021-10-28 12:36] VITALS: BP 142/050
[2021-10-28 14:16] LABS: Hb A 93.8 % (95.8-98.0); Hb A2 2.4 % (2.0-3.3); Hb F 3.8 % (0.0-0.9)
[2021-10-28 14:19] LABS: Hematocrit 30.9 VOL% (35.7-47.0); Hemoglobin 9.7 GM/DL (12.0-16.0)
[2021-10-29 11:05] LABS: Hemoglobin A1 (Alkaline) 93.8 % (96.5-98.5); Hemoglobin A2 (Alkaline) 2.4 % (1.5-3.5); Hemoglobin F (Alkaline) 3.8 %
== END 2021-10-28 15:22 | disposition home health service (06) | DRG 392 ==
LOC: N.ED 21:24 → SUATTDRO 23:50 → N.EDINP 23:50 → N.3E 10-25 17:41
PROVIDERS: ADMIT Internal Medicine Geriatric Medicine; ATTEND Internal Medicine

== ENCOUNTER 2021-12-12 13:29 | Observation (INO) ==
[2021-12-12 17:13] LABS: Basophils % 0.6 % (0.0-0.8); Eosinophils % 0.3 % (0.00-10.9); Hematocrit 26.4 VOL% (35.7-47.0); Hemoglobin 8.3 GM/DL (12.0-16.0); Immature Granulocytes % 1.2 %; Immature Granulocytes Absolute 0.04 #; Lymphocytes % 28.5 % (21.3-54.2); Mean Corpuscular HGB Conc 31.4 GM/DL (32-36); Mean Corpuscular Volume 103.5 FL (87-102); Mean Platelet Volume 13.8 FL (9.6-12.0); Monocytes # 0.8 10*3/uL (0.11-0.8); Monocytes % 22.8 % (1.7-12.7); Neutrophils % 46.6 % (38.7-73.9); Platelet Count 206 T/CUMM (130-400); Red Blood Count 2.55 MC/CUMM (3.8-5.5); Red Cell Distribution Width 23.1 % (9.3-17.3); White Blood Count 3.5 T/CUMM (4-12)
[2021-12-12 17:26] LABS: Alanine Aminotransferase 19 U/L (13-56); Albumin 3.5 G/DL (3.4-5.0); Alkaline Phosphatase 62 U/L (45-117); Aspartate Amino Transferase 16 U/L (0-37); Bilirubin,Total < 0.39 MG/DL (0.20-1.00); Blood Urea Nitrogen 14 MG/DL (7-18); Calcium 8.5 MG/DL (8.5-10.1); Carbon Dioxide 25 MMOL/L (21-32); Chloride 113 MMOL/L (98-107); Estimated Glom Filtration Rate 93 ML/MIN; Glucose 117 MG/DL (74-106); Sodium 143 MMOL/L (136-145); Total Protein 6.9 G/DL (6.4-8.2)
[2021-12-12 17:44] LABS: Lymphocytes 27 % (20-55); Metamyelocytes 1 %; Total Cells Counted 100
[2021-12-12 17:45] LABS: Anisocytosis Slight; Macrocytosis Slight; Microcytosis Slight; Platelet Estimate Adequate
[2021-12-12 18:03] LABS: Urine Appearance Clear (Clear); Urine Color Light Yellow (Yellow); Urine pH 5.5 (4.5-8.0)
[2021-12-12 18:04] LABS: Bilirubin,Urine Negative (Negative); Blood, Urine Negative (Negative); Glucose,Urine (UA) Negative (Negative); Ketones,Urine Negative (Negative); Nitrite,Urine Negative (Negative); Protein,Urine Negative (Negative); Urine Urobilinogen 0.2 eU/dL (<2.0)
[2021-12-12 18:08] LABS: Bacteria,Urine Occasional /HPF (Few); Mucus,Urine Occasional /LPF (Occasional); RBC,Urine 2 /HPF (0-4); Squamous Epithelial Cell,Urine Occasional /HPF (0-10)
[2021-12-12] MEDS ORDERED: GLUCAGON 1 MG VIAL IM PRN (20:30)
[2021-12-12] MEDS ORDERED: ACETAMINOPHEN 325 MG TABLET PO PRN (20:30)
[2021-12-12] MEDS ORDERED: ONDANSETRON 4 MG/2 ML VIAL IV PRN (20:35)
[2021-12-12] MEDS ORDERED: DEXTROSE 10% 250 ML BAG IV PRN (20:45)
[2021-12-12] MEDS ORDERED: SODIUM CHLORIDE 0.9% 1,000 ML IV PRN (21:29)
[2021-12-13 05:58] LABS: Basophils % 1.2 % (0.0-0.8); Eosinophils % 0.3 % (0.00-10.9); Hematocrit 29.6 VOL% (35.7-47.0); Hemoglobin 9.5 GM/DL (12.0-16.0); Immature Granulocytes % 0.6 %; Immature Granulocytes Absolute 0.02 #; Lymphocytes # 0.8 10*3/uL (1.4-4.0); Lymphocytes % 24.3 % (21.3-54.2); Mean Corpuscular HGB Conc 32.1 GM/DL (32-36); Mean Corpuscular Volume 94.6 FL (87-102); Mean Platelet Volume 14.2 FL (9.6-12.0); Monocytes # 0.8 10*3/uL (0.11-0.8); Monocytes % 25.5 % (1.7-12.7); Neutrophils % 48.1 % (38.7-73.9); Platelet Count 171 T/CUMM (130-400); Red Blood Count 3.13 MC/CUMM (3.8-5.5); White Blood Count 3.3 T/CUMM (4-12)
[2021-12-13 06:01] LABS: Calcium 8.4 MG/DL (8.5-10.1); Potassium 3.9 MMOL/L (3.5-5.1)
[2021-12-13 10:22] LABS: Anisocytosis 2+; Eosinophils 1 % (0-10); Lymphocytes 31 % (20-55); Platelet Estimate Normal; Total Cells Counted 100
[2021-12-13 10:55] VITALS: BP 155/67
== END 2021-12-13 11:48 | disposition home or self-care (01) ==
LOC: N.EDINP 13:29 → N.ED 13:29 → SUATTDRO 18:37 → N.TELES 20:40
PROVIDERS: ADMIT Emergency Medicine; ATTEND Internal Medicine

== ENCOUNTER 2022-02-15 05:45 | Observation (INO) ==
[2022-02-15 06:12] LABS: Basophils % 0.9 % (0.0-0.8); Eosinophils % 0.5 % (0.00-10.9); Hematocrit 26.5 VOL% (35.7-47.0); Hemoglobin 8.2 GM/DL (12.0-16.0); Immature Granulocytes % 1.1 %; Immature Granulocytes Absolute 0.05 #; Lymphocytes # 0.9 10*3/uL (1.4-4.0); Lymphocytes % 20.2 % (21.3-54.2); Mean Corpuscular HGB Conc 30.9 GM/DL (32-36); Mean Corpuscular Volume 98.5 FL (87-102); Monocytes # 1.1 10*3/uL (0.11-0.8); Monocytes % 24.5 % (1.7-12.7); Neutrophils % 52.8 % (38.7-73.9); Red Blood Count 2.69 MC/CUMM (3.8-5.5); Red Cell Distribution Width 22.1 % (9.3-17.3); White Blood Count 4.4 T/CUMM (4-12)
[2022-02-15 06:17] LABS: Platelet Count 197 T/CUMM (130-400)
[2022-02-15 06:23] LABS: Atypical Lymphocytes Few; Hypochromia Slight; Lymphocytes 22 % (20-55); PT Patient Result 11.2 SECS (10.5-12.0); Partial Thromboplastin Time 28.5 SECS (23.7-32.9); Platelet Estimate Adequate; Total Cells Counted 100
[2022-02-15 06:36] LABS: Bilirubin,Total 0.5 MG/DL (0.20-1.00); Calcium 8.5 MG/DL (8.5-10.1); Osmolality,Calculated 278.4 MOS/KG (273-304); Potassium 4.2 MMOL/L (3.5-5.1); Total Protein 6.6 G/DL (6.4-8.2)
[2022-02-15] MEDS ORDERED: GLUCAGON 1 MG VIAL IM PRN (08:29)
[2022-02-15] MEDS ORDERED: ACETAMINOPHEN 325 MG TABLET PO PRN (08:29)
[2022-02-15] MEDS ORDERED: ONDANSETRON 4 MG/2 ML VIAL IV PRN (08:29)
[2022-02-15] MEDS ORDERED: DEXTROSE 10% 250 ML BAG IV PRN (08:38)
[2022-02-15] MEDS ORDERED: NITROGLYCERIN SL 0.4 MG TABLET SL PRN (09:39)
[2022-02-15] MEDS: POTASSIUM CHLORIDE 10 MEQ TABLET PO SCH ×3 (12:06→20:33)
[2022-02-15] MEDS: DICYCLOMINE 10 MG CAPSULE PO SCH ×3 (15:13→20:32)
[2022-02-15] MEDS ORDERED: KETOROLAC 30 MG/1 ML VIAL IV ONE (15:19)
[2022-02-15] MEDS: cycloSPORINE OPH EMUL 1 VIAL BOTH EYES SCH (20:35)
[2022-02-15] MEDS ORDERED: SIMVASTATIN 40 MG TABLET PO SCH (21:00)
[2022-02-16 05:31] LABS: Basophils % 0.9 % (0.0-0.8); Eosinophils % 0.3 % (0.00-10.9); Hematocrit 27.5 VOL% (35.7-47.0); Hemoglobin 8.3 GM/DL (12.0-16.0); Immature Granulocytes % 1.4 %; Immature Granulocytes Absolute 0.05 #; Lymphocytes # 0.7 10*3/uL (1.4-4.0); Lymphocytes % 20.1 % (21.3-54.2); Mean Corpuscular HGB Conc 30.2 GM/DL (32-36); Mean Corpuscular Volume 99.6 FL (87-102); Mean Platelet Volume 14.3 FL (9.6-12.0); Monocytes # 0.9 10*3/uL (0.11-0.8); Monocytes % 26.7 % (1.7-12.7); Neutrophils % 50.6 % (38.7-73.9); Platelet Count 178 T/CUMM (130-400); Red Blood Count 2.76 MC/CUMM (3.8-5.5); Red Cell Distribution Width 22.1 % (9.3-17.3); White Blood Count 3.5 T/CUMM (4-12)
[2022-02-16 05:45] LABS: Atypical Lymphocytes Few; Lymphocytes 26 % (20-55); Platelet Estimate Adequate; Total Cells Counted 100
[2022-02-16] MEDS ORDERED: LEVOTHYROXINE 125 MCG TABLET PO SCH (06:30)
[2022-02-16 08:36] VITALS: BP 127/68
[2022-02-16] MEDS ORDERED: PANTOPRAZOLE 40 MG TABLET PO SCH (09:00)
[2022-02-16] MEDS ORDERED: FUROSEMIDE 40 MG TABLET PO SCH (09:00)
[2022-02-16] MEDS ORDERED: atenoloL 25 MG TABLET PO SCH (09:00)
[2022-02-16] MEDS: POTASSIUM CHLORIDE 10 MEQ TABLET PO SCH (10:46)
[2022-02-16] MEDS: cycloSPORINE OPH EMUL 1 VIAL BOTH EYES SCH (10:46)
[2022-02-16] MEDS: DICYCLOMINE 10 MG CAPSULE PO SCH (10:46)
== END 2022-02-16 12:30 | disposition home or self-care (01) ==
LOC: EDBD → EDUNIT# → N.ED 05:45 → N.EDINP 05:45 → SUATTDRO 08:29 → N.TELEN 09:11
PROVIDERS: ADMIT Internal Medicine Geriatric Medicine; ATTEND Internal Medicine

== ENCOUNTER 2022-03-13 12:05 | Observation (INO) ==
[2022-03-13 16:39] LABS: Basophils % 0.9 % (0.0-0.8); Eosinophils % 0.2 % (0.00-10.9); Hematocrit 23.3 VOL% (35.7-47.0); Hemoglobin 7.1 GM/DL (12.0-16.0); Immature Granulocytes % 1.1 %; Immature Granulocytes Absolute 0.05 #; Lymphocytes # 1.2 10*3/uL (1.4-4.0); Lymphocytes % 25.4 % (21.3-54.2); Mean Corpuscular HGB Conc 30.5 GM/DL (32-36); Mean Corpuscular Volume 99.1 FL (87-102); Mean Platelet Volume 14.3 FL (9.6-12.0); Monocytes # 1.2 10*3/uL (0.11-0.8); Monocytes % 27.1 % (1.7-12.7); Neutrophils % 45.3 % (38.7-73.9); Platelet Count 263 T/CUMM (130-400); Red Blood Count 2.35 MC/CUMM (3.8-5.5); Red Cell Distribution Width 21.5 % (9.3-17.3); White Blood Count 4.6 T/CUMM (4-12)
[2022-03-13 17:01] LABS: Albumin 2.9 G/DL (3.4-5.0); Bilirubin,Total 0.6 MG/DL (0.20-1.00); Calcium 9.1 MG/DL (8.5-10.1); Osmolality,Calculated 274.5 MOS/KG (273-304); Potassium 5.5 MMOL/L (3.5-5.1); Total Protein 7.8 G/DL (6.4-8.2)
[2022-03-13 17:31] LABS: Band Neutrophils 1 % (0-10); Eosinophils 1 % (0-10); Lymphocytes 23 % (20-55); Total Cells Counted 100
[2022-03-13 17:32] LABS: Anisocytosis 1+; Ovalocytes Slight; Platelet Estimate Normal
[2022-03-13] MEDS ORDERED: SODIUM CHLORIDE 0.9% 1,000 ML IV PRN (18:01)
[2022-03-13] MEDS ORDERED: ONDANSETRON 4 MG/2 ML VIAL IV PRN (18:47)
[2022-03-13] MEDS ORDERED: ACETAMINOPHEN 500 MG TABLET PO PRN (18:51)
[2022-03-13] MEDS ORDERED: DEXTROSE 10% 250 ML BAG IV PRN (19:14)
[2022-03-13 19:37] LABS: % Iron Saturation 82.6 % (18-50)
[2022-03-13 19:44] LABS: Folate > 24.00 NG/ML (5.38-24.0); Vitamin B12 449 PG/ML (211-911)
[2022-03-13] MEDS ORDERED: LEVOTHYROXINE 125 MCG TABLET PO SCH (21:00)
[2022-03-13] MEDS: DICYCLOMINE 10 MG CAPSULE PO SCH (22:33)
[2022-03-13] MEDS: MAGNESIUM CHLORIDE 64 MG TABLET PO SCH (22:33)
[2022-03-13] MEDS: cycloSPORINE OPH EMUL 1 VIAL BOTH EYES SCH (22:33)
[2022-03-14 05:58] LABS: Basophils % 0.7 % (0.0-0.8); Eosinophils % 0.5 % (0.00-10.9); Hematocrit 25.9 VOL% (35.7-47.0); Hemoglobin 8.2 GM/DL (12.0-16.0); Immature Granulocytes % 1.4 %; Immature Granulocytes Absolute 0.06 #; Lymphocytes # 0.7 10*3/uL (1.4-4.0); Lymphocytes % 17.3 % (21.3-54.2); Mean Corpuscular HGB Conc 31.7 GM/DL (32-36); Mean Corpuscular Volume 97.4 FL (87-102); Mean Platelet Volume 13.7 FL (9.6-12.0); Monocytes # 1.2 10*3/uL (0.11-0.8); Monocytes % 28.5 % (1.7-12.7); Neutrophils % 51.6 % (38.7-73.9); Platelet Count 241 T/CUMM (130-400); Red Blood Count 2.66 MC/CUMM (3.8-5.5); White Blood Count 4.2 T/CUMM (4-12)
[2022-03-14 06:21] LABS: Eosinophils 1 % (0-10); Hypochromia Slight; Lymphocytes 15 % (20-55); Platelet Estimate Normal; Total Cells Counted 100
[2022-03-14 06:27] LABS: Albumin 2.6 G/DL (3.4-5.0); Bilirubin,Total 0.4 MG/DL (0.20-1.00); Calcium 8.4 MG/DL (8.5-10.1); Osmolality,Calculated 279.3 MOS/KG (273-304); Potassium 4.3 MMOL/L (3.5-5.1); Risk Ratio 2.79; Thyroid Stimulating Hormone 0.216 uIU/ml (0.358-3.74); Total Protein 7.2 G/DL (6.4-8.2); VLDL Cholesterol 24.6 MG/DL
[2022-03-14] MEDS ORDERED: FUROSEMIDE 40 MG TABLET PO SCH (09:00)
[2022-03-14] MEDS ORDERED: MULTIVITAMIN (CENTRUM) TABLET PO SCH (09:00)
[2022-03-14] MEDS ORDERED: atenoloL 25 MG TABLET PO SCH (09:00)
[2022-03-14] MEDS ORDERED: SIMVASTATIN 40 MG TABLET PO SCH (09:00)
[2022-03-14] MEDS ORDERED: PANTOPRAZOLE 40 MG TABLET PO SCH (09:00)
[2022-03-14] MEDS: DICYCLOMINE 10 MG CAPSULE PO SCH (09:25)
[2022-03-14] MEDS: cycloSPORINE OPH EMUL 1 VIAL BOTH EYES SCH (09:26)
[2022-03-14] MEDS: MAGNESIUM CHLORIDE 64 MG TABLET PO SCH (09:26)
[2022-03-14 09:41] VITALS: BP 156/72
[2022-03-14] MEDS ORDERED: LEVOTHYROXINE 112 MCG TABLET PO SCH (18:00)
== END 2022-03-14 10:47 | disposition home or self-care (01) ==
LOC: N.TELES 12:05 → N.ED 12:05 → N.TELES 21:50
PROVIDERS: ADMIT Internal Medicine; ATTEND Internal Medicine

== ENCOUNTER 2022-06-27 14:05 | Observation (INO) ==
[2022-06-27] MEDS: ASPIRIN 325 MG TABLET PO STA ×2 (14:38→14:40)
[2022-06-27 15:07] LABS: Basophils % 1.1 % (0.0-0.8); Eosinophils % 0.3 % (0.00-10.9); Hematocrit 31.1 VOL% (35.7-47.0); Hemoglobin 9.9 GM/DL (12.0-16.0); Immature Granulocytes % 0.8 %; Immature Granulocytes Absolute 0.03 #; Lymphocytes # 0.8 10*3/uL (1.4-4.0); Lymphocytes % 22.6 % (21.3-54.2); Mean Corpuscular HGB Conc 31.8 GM/DL (32-36); Mean Corpuscular Volume 92.8 FL (87-102); Mean Platelet Volume 13.4 FL (9.6-12.0); Monocytes # 0.9 10*3/uL (0.11-0.8); Monocytes % 23.4 % (1.7-12.7); Neutrophils % 51.8 % (38.7-73.9); Platelet Count 205 T/CUMM (130-400); Red Blood Count 3.35 MC/CUMM (3.8-5.5); Red Cell Distribution Width 16.6 % (9.3-17.3); White Blood Count 3.7 T/CUMM (4-12)
[2022-06-27 15:16] LABS: Albumin 3.4 G/DL (3.4-5.0); Bilirubin,Total 0.6 MG/DL (0.20-1.00); Calcium 8.7 MG/DL (8.5-10.1); Osmolality,Calculated 285.1 MOS/KG (273-304); Potassium 3.8 MMOL/L (3.5-5.1); Total Protein 6.8 G/DL (6.4-8.2)
[2022-06-27] MEDS ORDERED: ONDANSETRON 4 MG/2 ML VIAL IV PRN (15:58)
[2022-06-27] MEDS ORDERED: ALBUTEROL 2.5 MG/3 ML NEB RESP TX PRN (15:58)
[2022-06-27] MEDS ORDERED: NITROGLYCERIN SL 0.4 MG TABLET SL PRN (16:07)
[2022-06-27 16:31] LABS: Band Neutrophils 2 % (0-10); Lymphocytes 24 % (20-55); Platelet Estimate Normal; Total Cells Counted 100
[2022-06-27] MEDS: DICYCLOMINE 10 MG CAPSULE PO SCH (21:13)
[2022-06-27] MEDS: POTASSIUM CHLORIDE 10 MEQ TABLET PO SCH (21:14)
[2022-06-27] MEDS ORDERED: ACETAMINOPHEN 325 MG TABLET PO PRN (21:57)
[2022-06-28 04:24] LABS: Basophils % 1.3 % (0.0-0.8); Eosinophils % 0.3 % (0.00-10.9); Hematocrit 29.7 VOL% (35.7-47.0); Hemoglobin 9.7 GM/DL (12.0-16.0); Immature Granulocytes % 0.3 %; Immature Granulocytes Absolute 0.01 #; Lymphocytes % 31.1 % (21.3-54.2); Mean Corpuscular HGB Conc 32.7 GM/DL (32-36); Mean Corpuscular Volume 92.5 FL (87-102); Mean Platelet Volume 13.4 FL (9.6-12.0); Monocytes # 0.7 10*3/uL (0.11-0.8); Platelet Count 190 T/CUMM (130-400); Red Blood Count 3.21 MC/CUMM (3.8-5.5); Red Cell Distribution Width 16.1 % (9.3-17.3); White Blood Count 3.1 T/CUMM (4-12)
[2022-06-28 05:04] LABS: Eosinophils 2 % (0-10); Hypochromia Slight; Lymphocytes 30 % (20-55); Microcytosis Slight; Platelet Estimate Adequate; Total Cells Counted 100
[2022-06-28 05:55] LABS: Calcium 8.6 MG/DL (8.5-10.1); Osmolality,Calculated 282.3 MOS/KG (273-304); Potassium 3.6 MMOL/L (3.5-5.1); Risk Ratio 4.12; Thyroid Stimulating Hormone 0.27 uIU/ml (0.358-3.74); VLDL Cholesterol 38.2 MG/DL
[2022-06-28] MEDS ORDERED: PANTOPRAZOLE 40 MG TABLET PO SCH (09:00)
[2022-06-28] MEDS ORDERED: atenoloL 25 MG TABLET PO SCH (09:00)
[2022-06-28] MEDS ORDERED: FUROSEMIDE 20 MG TABLET PO SCH (09:00)
[2022-06-28] MEDS: POTASSIUM CHLORIDE 10 MEQ TABLET PO SCH (10:08)
[2022-06-28] MEDS: DICYCLOMINE 10 MG CAPSULE PO SCH ×2 (10:08→13:57)
[2022-06-28] MEDS ORDERED: MECLIZINE 25 MG TABLET PO PRN (10:57)
[2022-06-28 11:52] VITALS: BP 131/64
== END 2022-06-28 15:12 | disposition home or self-care (01) ==
LOC: N.EDINP 14:05 → N.ED 14:05 → N.EDINP 06-28 05:44 → N.TELEN 06-28 06:03
PROVIDERS: ADMIT Emergency Medicine; ATTEND Emergency Medicine

== ENCOUNTER 2022-08-26 22:57 | Inpatient (IN) ==
[2022-08-27 00:20] LABS: Basophils % 0.6 % (0.0-0.8); Hematocrit 21.8 VOL% (35.7-47.0); Hemoglobin 7.4 GM/DL (12.0-16.0); Immature Granulocytes % 1.7 %; Immature Granulocytes Absolute 0.08 #; Lymphocytes # 0.7 10*3/uL (1.4-4.0); Lymphocytes % 15.5 % (21.3-54.2); Mean Corpuscular HGB Conc 33.9 GM/DL (32-36); Mean Corpuscular Volume 98.2 FL (87-102); Monocytes % 20.6 % (1.7-12.7); Neutrophils % 61.6 % (38.7-73.9); Platelet Count 326 T/CUMM (130-400); Red Blood Count 2.22 MC/CUMM (3.8-5.5); Red Cell Distribution Width 17.1 % (9.3-17.3); White Blood Count 4.7 T/CUMM (4-12)
[2022-08-27 00:34] LABS: Albumin 3.8 G/DL (3.4-5.0); Bilirubin,Total 0.5 MG/DL (0.20-1.00); Osmolality,Calculated 286.3 MOS/KG (273-304); Potassium 4.7 MMOL/L (3.5-5.1); Total Protein 7.2 G/DL (6.4-8.2)
[2022-08-27 00:46] LABS: INR 0.9; PT Patient Result 10.5 SECS (10.1-12.1)
[2022-08-27 00:51] LABS: Partial Thromboplastin Time >= 211.8 SECS (23.7-32.9)
[2022-08-27 01:00] LABS: Lymphocytes 20 % (20-55); Platelet Estimate Adequate; Total Cells Counted 100
[2022-08-27] MEDS ORDERED: ONDANSETRON 4 MG/2 ML VIAL IV PRN (03:40)
[2022-08-27] MEDS ORDERED: ACETAMINOPHEN 325 MG TABLET PO PRN (03:40)
[2022-08-27] MEDS ORDERED: hydrALAZINE 20 MG/1 ML VIAL IV PRN (03:40)
[2022-08-27] MEDS: FUROSEMIDE 40 MG TABLET PO SCH (09:15)
[2022-08-27] MEDS: atenoloL 50 MG TABLET PO SCH (09:16)
[2022-08-27] MEDS: PANTOPRAZOLE 40 MG TABLET PO SCH (09:16)
[2022-08-27] MEDS ORDERED: INFLUENZA VIRUS VACCINE 0.5 ML SYRINGE IM ONE (09:22)
[2022-08-27] MEDS ORDERED: SODIUM CHLORIDE 0.9% 1,000 ML IV PRN (12:52)
[2022-08-27] MEDS ORDERED: methylPREDNISolone SOD SUC 125 MG/2 ML VIAL IV ONE (12:53)
[2022-08-28 07:59] LABS: Basophils % 0.8 % (0.0-0.8); Hematocrit 20.7 VOL% (35.7-47.0); Hemoglobin 6.9 GM/DL (12.0-16.0); Immature Granulocytes % 0.6 %; Immature Granulocytes Absolute 0.03 #; Lymphocytes # 1.8 10*3/uL (1.4-4.0); Lymphocytes % 35.5 % (21.3-54.2); Mean Corpuscular HGB Conc 33.3 GM/DL (32-36); Mean Corpuscular Volume 95.4 FL (87-102); Mean Platelet Volume 13.4 FL (9.6-12.0); Monocytes % 19.8 % (1.7-12.7); Neutrophils % 43.3 % (38.7-73.9); Platelet Count 353 T/CUMM (130-400); Red Blood Count 2.17 MC/CUMM (3.8-5.5); Red Cell Distribution Width 15.6 % (9.3-17.3)
[2022-08-28 08:10] LABS: Calcium 9.1 MG/DL (8.5-10.1); Osmolality,Calculated 291.8 MOS/KG (273-304); Potassium 3.8 MMOL/L (3.5-5.1)
[2022-08-28 08:23] LABS: Atypical Lymphocytes Few; Band Neutrophils 3 % (0-10); Lymphocytes 34 % (20-55); Nucleated Red Blood Cells 1 /100 WBC (0-5); Platelet Estimate Normal; Total Cells Counted 100
[2022-08-28 08:24] LABS: Anisocytosis 2+
[2022-08-28] MEDS: methylPREDNISolone SOD SUC 125 MG/2 ML VIAL IV SCH ×2 (09:02→21:04)
[2022-08-28] MEDS: FUROSEMIDE 40 MG TABLET PO SCH (09:11)
[2022-08-28] MEDS: atenoloL 50 MG TABLET PO SCH (09:12)
[2022-08-28] MEDS: PANTOPRAZOLE 40 MG TABLET PO SCH (09:12)
[2022-08-29 07:39] LABS: Basophils % 0.3 % (0.0-0.8); Hematocrit 20.9 VOL% (35.7-47.0); Hemoglobin 7.2 GM/DL (12.0-16.0); Immature Granulocytes % 1.1 %; Immature Granulocytes Absolute 0.08 #; Lymphocytes % 13.3 % (21.3-54.2); Mean Corpuscular HGB Conc 34.4 GM/DL (32-36); Mean Corpuscular Volume 95.4 FL (87-102); Mean Platelet Volume 13.4 FL (9.6-12.0); Monocytes % 13.3 % (1.7-12.7); Platelet Count 389 T/CUMM (130-400); Red Blood Count 2.19 MC/CUMM (3.8-5.5); Red Cell Distribution Width 15.9 % (9.3-17.3); White Blood Count 7.6 T/CUMM (4-12)
[2022-08-29 07:56] LABS: Alanine Aminotransferase 30 U/L (13-56); Albumin 3.4 G/DL (3.4-5.0); Alkaline Phosphatase 54 U/L (45-117); Aspartate Amino Transferase < 3 U/L (0-37); Blood Urea Nitrogen 26 MG/DL (7-18); Calcium 9.1 MG/DL (8.5-10.1); Carbon Dioxide 22 MMOL/L (21-32); Chloride 110 MMOL/L (98-107); Glucose 127 MG/DL (74-106); Osmolality,Calculated 289.1 MOS/KG (273-304); Potassium 3.9 MMOL/L (3.5-5.1); Sodium 142 MMOL/L (136-145)
[2022-08-29 08:06] LABS: Hypochromia Slight; Lymphocytes 10 % (20-55); Microcytosis Slight; Platelet Estimate Adequate; Total Cells Counted 100
[2022-08-29] MEDS: methylPREDNISolone SOD SUC 125 MG/2 ML VIAL IV SCH ×2 (09:16→20:05)
[2022-08-29] MEDS: FUROSEMIDE 40 MG TABLET PO SCH (09:28)
[2022-08-29] MEDS: atenoloL 50 MG TABLET PO SCH (09:28)
[2022-08-29] MEDS: PANTOPRAZOLE 40 MG TABLET PO SCH (09:28)
[2022-08-29] MEDS ORDERED: SODIUM CHLORIDE 0.9% 1,000 ML IV PRN (21:35)
[2022-08-30 06:11] LABS: Basophils % 0.1 % (0.0-0.8); Hematocrit 20.8 VOL% (35.7-47.0); Hemoglobin 6.6 GM/DL (12.0-16.0); Immature Granulocytes % 0.9 %; Immature Granulocytes Absolute 0.07 #; Lymphocytes # 0.9 10*3/uL (1.4-4.0); Lymphocytes % 11.9 % (21.3-54.2); Mean Corpuscular HGB Conc 31.7 GM/DL (32-36); Mean Corpuscular Volume 96.7 FL (87-102); Mean Platelet Volume 13.1 FL (9.6-12.0); Monocytes # 0.9 10*3/uL (0.11-0.8); Monocytes % 11.8 % (1.7-12.7); Neutrophils % 75.3 % (38.7-73.9); Platelet Count 387 T/CUMM (130-400); Red Blood Count 2.15 MC/CUMM (3.8-5.5); Red Cell Distribution Width 15.5 % (9.3-17.3); White Blood Count 7.6 T/CUMM (4-12)
[2022-08-30 06:32] LABS: Albumin 3.3 G/DL (3.4-5.0); Bilirubin,Total 0.5 MG/DL (0.20-1.00); Osmolality,Calculated 297.7 MOS/KG (273-304); Potassium 4.4 MMOL/L (3.5-5.1); Total Protein 6.7 G/DL (6.4-8.2)
[2022-08-30 06:40] LABS: Hypochromia 1+; Lymphocytes 10 % (20-55); Microcytosis 1+; Platelet Estimate Adequate; Total Cells Counted 100
[2022-08-30] MEDS ORDERED: diphenhydrAMINE 50 MG/1 ML VIAL IV ONE (07:33)
[2022-08-30] MEDS ORDERED: ACETAMINOPHEN 325 MG TABLET PO ONE (07:34)
[2022-08-30] MEDS ORDERED: FAMOTIDINE 20 MG/2 ML VIAL IV ONE (07:34)
[2022-08-30] MEDS: atenoloL 50 MG TABLET PO SCH (09:06)
[2022-08-30] MEDS: FUROSEMIDE 40 MG TABLET PO SCH (09:06)
[2022-08-30] MEDS: PANTOPRAZOLE 40 MG TABLET PO SCH (09:06)
[2022-08-30] MEDS: methylPREDNISolone SOD SUC 125 MG/2 ML VIAL IV SCH ×2 (09:07→20:00)
[2022-08-30 21:28] VITALS: BP 161/65
== END 2022-08-30 20:20 | disposition home or self-care (01) | DRG 841 ==
LOC: N.ED 22:57 → N.EDINP 22:57 → SUATTDRO 08-27 03:40 → N.EDINP 08-27 14:45 → N.TELES 08-27 15:36 → UNDODISOB 08-30 20:20
PROVIDERS: ADMIT Internal Medicine; ATTEND Internal Medicine